=== PATIENT | female | born 1935 | race Caucasian/White ===

== ENCOUNTER 2017-01-23 04:46 | Emergency (ER) | payer MEDICARE, OTHER ==
[~2017-01-23 04:46] MED LIST: AMIODARONE HCL200 MG PO; ASPIRIN CHEWABL81 MG PO; BUMEX1 MG PO; BYSTOLIC5 MG PO; CLARITIN10 MG PO; DITROPAN5 MG PO; DRISDOL50000 UNIT PO; LEVAQUIN500 MG PO; LIPITOR80 MG PO; MUCINEX 600MG600 MG PO; PLAVIX75 MG PO; PROBIOTIC OF CHOICE PO; PROZAC20 MG PO; SYNTHROID75 MCG PO; ZANTAC150 MG PO
[2017-01-23 07:04] LABS: BASOPHIL 0.4 % (0-2); EOSINOPHIL 3.2 % (0-7); HCT 37.3 % (37.0-47.0); HGB 12.2 g/dl (12.5-16.0); LYMPHOCYTE 25.1 % (15-48); MCHC 32.7 g/dL (32.0-36.0); MCV 91.9 fL (78.0-100.0); MPV 10.5 fL (6.0-9.5); NEUTROPHIL 57.3 % (41-80); PLT 159 K/uL (150-400); RBC 4.06 M/uL (4.20-5.40); RDW 15.3 % (11.5-14.0); WBC 5.3 K/uL (4.0-10.5)
[2017-01-23 07:12] LABS: INR 1.02 (0.9-1.2); PTT 28.6 SECONDS (23.2-31.4)
[2017-01-23 07:13] LABS: D-DIMER 0.99 ug/mLFEU (0.00-0.41)
[2017-01-23 07:18] LABS: ALBUMIN 3.8 g/dL (3.4-4.8); BILIRUBIN - TOTAL 0.5 mg/dL (0.1-1.0); CREATININE 1.5 mg/dL (0.5-1.0); GLOBULIN (CALCULATION) 2.7 g/dL (2.2-4.2); TOTAL PROTEIN 6.5 g/dL (6.4-8.3)
[2017-01-23 07:28] LABS: FT4 (FREE T4) 1.3 ng/dL (0.93-1.70); TSH (THYROID STIM HORMONE) 5.89 uIU/mL (0.270-4.200)
[2017-01-23 07:53] LABS: CKMB 2.92 ng/mL (0.97-4.94); TROPONIN T < 0.010 ng/mL
== END 2017-01-23 13:45 | disposition home or self-care (01) ==
LOC: FER 04:46
PROVIDERS: Emergency Medicine Emergency Medical Services
DX: E03.9 Hypothyroidism, unspecified (principal); I13.10 Hypertensive heart and chronic kidney disease without heart failure, with stage 1 through stage 4 chronic kidney disease, or unspecified chronic kidney disease; N18.9 Chronic kidney disease, unspecified; R06.02 Shortness of breath; Z79.82 Long term (current) use of aspirin; Z79.01 Long term (current) use of anticoagulants; Z79.899 Other long term (current) drug therapy; Z95.0 Presence of cardiac pacemaker
CPT/HCPCS: 36415; 71010; 78579; 78580; 78582; 80053; 82550; 82553; 84439; 84443; 84484; 85025; 85379; 85610; 85730; 93005; A9539; A9540

== ENCOUNTER 2022-03-15 15:17 | Emergency (ER) | payer MEDICARE, OTHER ==
[~2022-03-15 15:17] MED LIST changes: +CEFDINIR300 MG PO; +FLEXERIL10 MG PO; +MACROBID100 MG PO; +NORVASC5 MG PO; +SYNTHROID88 MCG PO; +VITAMIN D2400 UNIT PO
[2022-03-15 16:31] LABS: BASOPHIL 0.4 % (0-2); EOSINOPHIL 0 % (0-7); HCT 48.7 % (37.0-47.0); HGB 15.5 g/dl (12.5-16.0); LYMPHOCYTE 14.2 % (15-48); MCH 29.1 pg (25.0-31.0); MCHC 31.8 g/dL (32.0-36.0); MCV 91.5 fL (78.0-100.0); MONOCYTE 7.9 % (0-12); MPV 11.4 fL (6.0-9.5); NEUTROPHIL 76.2 % (41-80); NRBC 0; PLT 226 K/uL (150-400); RBC 5.32 M/uL (4.20-5.40); RDW 15.8 % (11.5-14.0); WBC 6.7 K/uL (4.0-10.5)
[2022-03-15 17:02] LABS: LACTIC ACID 1.2 mmol/L (0.4-1.9)
[2022-03-15 17:47] LABS: ALBUMIN 3.2 g/dL (3.4-5.0); BILIRUBIN - TOTAL 0.8 mg/dL (0.2-1.0); CREATININE 1.8 mg/dL (0.51-0.95); MAGNESIUM 2.1 mg/dL (1.8-2.4); POTASSIUM 4.5 mmol/L (3.5-5.1); TOTAL PROTEIN 7.2 g/dL (6.4-8.2)
[2022-03-15 18:22] LABS: BILIRUBIN NEGATIVE (NEGATIVE); BLOOD NEGATIVE Ery/uL (NEGATIVE); CLARITY CLEAR (CLEAR); COLOR YELLOW (YELLOW); GLUCOSE (U) NORMAL (NORMAL); LEUKOCYTES 1+ Leu/uL (NEGATIVE); NITRITE NEGATIVE (NEGATIVE); PROTEIN NEGATIVE (NEGATIVE); UROBILINOGEN 0.2 mg/dL (0.2-1.0); pH 5.5 (5.0-9.0)
[2022-03-15 18:35] LABS: BACTERIA 1+; URINARY RBC RARE
[2022-03-15] MEDS ORDERED: AUGMENTIN 500-1 EACH PO ×2 (18:49→19:17)
== END 2022-03-15 19:33 | disposition home or self-care (01) ==
LOC: FER 15:17
PROVIDERS: Physician Assistant
DX: U07.1 COVID-19 (principal); N39.0 Urinary tract infection, site not specified; I10 Essential (primary) hypertension; Z79.02 Long term (current) use of antithrombotics/antiplatelets; Z79.82 Long term (current) use of aspirin; Z79.899 Other long term (current) drug therapy
CPT/HCPCS: 36415; 71045; 80053; 81001; 83605; 83735; 85025; 87088; J7030